=== PATIENT | female | born 1980 | race Caucasian/White ===

== ENCOUNTER 2016-07-01 12:02 | Emergency (ER) | payer OTHER ==
[2016-07-01 13:03] VITALS: BP 128/91
--- NOTE | 2016-07-01 14:15 | UC ---
Respiratory Complaint HPI - HPI Summary HPI Summary: WHEEZING X 3 DAYS + COUGH , CHEST CONGESTION , NO FEVER, NO CHILLS, NO SOB - History of Current Complaint Chief Complaint: UCRespiratory Stated Complaint: ASTHMA COMPLAINT 2 DAYS Time Seen by Provider: 07/01/16 13:06 Hx Obtained From: Patient Hx Last Menstrual Period: 09/10/15 Onset/Duration: Gradual Onset, Lasting Days - 3, Still Present Timing: Constant Severity Initially: Moderate Severity Currently: Moderate Character: Cough: Nonproductive Aggravating Factors: Exertion, Deep Breaths Alleviating Factors: Bronchodilator Associated Signs And Symptoms: Positive: Negative, Wheezing, URI, Nasal Congestion. Negative: Dyspnea, Fever, Chills, Pleuritic Chest Pain, Hemoptysis , Dizziness, Calf Pain, Calf Swelling, Edema - Allergies/Home Medications Allergies/Adverse Reactions: Allergies Allergy/AdvReac Type Severity Reaction Status Date / Time Erythromycin Allergy Rash Verified 07/01/16 13:03 Sulfa Antibiotics Allergy Rash Verified 07/01/16 13:03 trees Allergy Eyes Uncoded 07/01/16 13:03 Itchy/Swollen/Red/Watery PMH/Surg Hx/FS Hx/Imm Hx Cardiovascular History Of: Reports: Hypertension Respiratory History Of: Reports: Asthma - Surgical History Surgical History: Yes Surgery Procedure, Year, and Place: left eye removed, gall bladder, tubal ligation - Family History Known Family History: Positive: None Negative: Diabetes - Social History Alcohol Use: Weekly Alcohol Amount: 1 beer Substance Use Type: None Smoking Status (MU): Former Smoker Have You Smoked in the Last Year: No - Immunization History Hx Tetanus, Diphtheria Vaccination: Yes Vaccination Up to Date: Yes Review of Systems Constitutional: Negative Skin: Negative Eyes: Negative ENT: Negative Respiratory: Shortness Of Breath, Cough Cardiovascular: Negative Gastrointestinal: Negative All Other Systems Reviewed And Are Negative: Yes Physical Exam Triage Information Reviewed: Yes Appearance: Well-Appearing, No Pain Distress, Well-Nourished Vital Signs: Initial Vital Signs Temp 98.3 F 07/01/16 13:00 Pulse 61 07/01/16 13:00 Resp 16 07/01/16 13:00 BP 128/91 07/01/16 13:00 Pulse Ox 95 07/01/16 13:00 Vital Signs Reviewed: Yes Eye Exam: Normal Eyes: Positive: Conjunctiva Clear ENT Exam: Normal ENT: Positive: Normal ENT inspection, Hearing grossly normal, Pharynx normal Neck exam: Normal Neck: Positive: Supple, Nontender, No Lymphadenopathy Respiratory: Positive: Chest non-tender, Lungs clear, Normal breath sounds. Negative: Wheezing Cardiovascular: Positive: RRR, No Murmur, Pulses Normal Abdominal Exam: Normal Abdomen Description: Positive: Soft Bowel Sounds: Positive: Present UC Diagnostic Evaluation - Laboratory O2 Sat by Pulse Oximetry: 95 Respiratory Course/Dx - Differential Dx/Diagnosis Provider Diagnoses: ASTHMA Discharge - Discharge Plan Condition: Stable Disposition: HOME Prescriptions: Prednisone 20 mg PO BID #10 tab Patient Education Materials: Asthma (ED) Referrals: Fay Ramirez [Primary Care Provider] - 7 Days
== END 2016-07-01 14:23 | disposition home or self-care (01) ==
LOC: UCCORT 12:02
DX: J45.909 Unspecified asthma, uncomplicated (principal); Z90.49 Acquired absence of other specified parts of digestive tract; Z88.1 Allergy status to other antibiotic agents; Z88.2 Allergy status to sulfonamides; Z87.891 Personal history of nicotine dependence
CPT/HCPCS: 99212; G0463